=== PATIENT | male | born 1985 | race Caucasian/White ===

== ENCOUNTER 2020-03-21 14:17 | Emergency (ER) | payer MEDICAID ==
[~2020-03-21] VITALS: Ht 185.4 cm; Wt 75.9 kg
[2020-03-21 14:42] VITALS: BP 117/89
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
--- NOTE | 2020-03-21 15:33 | NUR ---
IN THE MIDDLE OF CODE BLUE WITH OTHER PT. PT LEFT ROOM AND IS NO WHERE TO BE FOUND IN ED.
== END 2020-03-21 15:36 | disposition left against medical advice (07) ==
LOC: ED 15:30
DX: F15.10 Other stimulant abuse, uncomplicated (principal); Z72.9 Problem related to lifestyle, unspecified; F17.210 Nicotine dependence, cigarettes, uncomplicated
CPT/HCPCS: 99285; 99406